=== PATIENT | male | born 1990 | race African-American/Black ===

== ENCOUNTER 2024-02-27 17:19 | Inpatient (IN) | payer OTHER ==
[2024-02-27 19:48] VITALS: BMI 20.9
[2024-02-27] MEDS ORDERED: POLYETHYLENE GLYCOL (HEALTHYLAX) 3350 17 GM PACKET PO PRN (20:31)
[2024-02-27] MEDS ORDERED: NALOXONE (NARCAN) HCL 4 MG/0.1 ML SPRAY NS PRN (20:31)
[2024-02-27] MEDS ORDERED: BENZOCAINE/MENTHOL (CHLORASEPTIC ) LOZENGE MM PRN (20:31)
[2024-02-27] MEDS ORDERED: IBUPROFEN 400 MG TABLET (FP) PO PRN (20:31)
[2024-02-27] MEDS ORDERED: IBUPROFEN 600 MG TABLET (FP) PO PRN (20:31)
[2024-02-27] MEDS ORDERED: DICYCLOMINE HCL 10 MG CAPSULE PO PRN (20:31)
[2024-02-27] MEDS ORDERED: LOPERAMIDE HCL 2 MG CAPSULE PO PRN (20:31)
[2024-02-27] MEDS ORDERED: ONDANSETRON *ODT* 4 MG TABLET SL PRN (20:31)
[2024-02-27] MEDS ORDERED: ACETAMINOPHEN 325 MG TABLET (FP) PO PRN (20:31)
[2024-02-27] MEDS ORDERED: NALOXONE HCL 0.4 MG/ML VIAL IM PRN (20:31)
[2024-02-27] MEDS ORDERED: guaiFENesin 600 MG TABLET.ER (FP) PO PRN (20:31)
[2024-02-27] MEDS ORDERED: MAGNESIUM HYDROX 2400MG/30ML ORAL SUSPENSION 30 ML CUP PO PRN (20:31)
[2024-02-27] MEDS ORDERED: BENZONATATE 200 MG CAPSULE PO PRN (20:31)
[2024-02-27] MEDS ORDERED: BISMUTH SUBSALICYLATE 524 MG/30 ML PO PRN (20:31)
[2024-02-27] MEDS ORDERED: MAG HYDROX/AL HYDROX/SIMETH 30 ML UNIT-DOSE CUP PO PRN (20:31)
[2024-02-27] MEDS: MELATONIN 5 MG TABLETS PO SCH (22:03)
[2024-02-27] MEDS: THIAMINE 100 MG TABLET PO SCH (22:03)
[2024-02-27] MEDS: METHOCARBAMOL 500 MG TABLET PO PRN (23:04)
[2024-02-28] MEDS ORDERED: LORazepam 1 MG TABLET PO PRN (08:45)
[2024-02-28] MEDS: NALTREXONE MICROSPHERES (VIVITROL) 380 MG DISP.SYRIN IM ONE (09:45)
[2024-02-28] MEDS: NALTREXONE HCL 50 MG TABLET PO SCH (10:09)
[2024-02-28] MEDS: HYDROCHLOROTHIAZIDE 25 MG TABLET (FP) PO SCH (10:09)
[2024-02-28] MEDS: METOPROLOL TARTRATE 50 MG TABLET (FP) PO SCH (10:09)
[2024-02-28] MEDS: LORazepam 2 MG TABLET PO ONE (10:10)
[2024-02-28] MEDS: PRENATAL VITAMINS W/ FOLIC ACID TABLET (FP) PO SCH (10:13)
[2024-02-28] MEDS: LORazepam 2 MG TABLET PO SCH (10:40)
[2024-02-28] MEDS: SACUBITRIL/VALSARTAN 24 MG-26 MG TABLET PO SCH (11:24)
[2024-02-28] MEDS: SPIRONOLACTONE 25 MG TABLET PO SCH (11:26)
[2024-02-28 12:15] LABS: HEMATOCRIT 42.7 % (35.4-49); HEMOGLOBIN 14.7 GM/dL (11.7-16.9); MCH 33.9 pg (25.7-33.7); MCHC 34.4 g/dl (32.0-35.9); MEAN CELL VOLUME 98.6 fl (80-96); MEAN PLT VOLUME 8.4 fl (7.5-11.1); PLATELET COUNT 143 10^3/uL (134-434); RBC 4.33 M/mm3 (4.00-5.60); RDW 13.1 % (11.9-15.9)
[2024-02-28 12:26] LABS: WHITE BLOOD COUNT 1.7 K/mm3 (4.0-10.0)
[2024-02-28 13:18] LABS: CHLORIDE 97 mmol/L (98-107); POTASSIUM 3.4 mmol/L (3.5-5.1); SODIUM 135 mmol/L (136-145)
[2024-02-28 13:34] LABS: ANION GAP 10 mmol/L (4-13); BLOOD UREA NITROGEN 11.1 mg/dL (7-18); CALCIUM 9.3 mg/dL (8.5-10.1); CO2 28 mmol/L (21-32); GLUCOSE,RANDOM 77 mg/dL (74-106)
[2024-02-28 13:38] LABS: BILIRUBIN,TOTAL 0.8 mg/dL (0.2-1); CREATININE 0.9 mg/dL (0.55-1.3); SGOT/AST 112 U/L (15-37); SGPT/ALT 88 U/L (13-61); TOT PROT 7.8 g/dl (6.4-8.2)
[2024-02-28 13:40] LABS: ALK PHOS 83 U/L (45-117)
[2024-02-29 12:30] LABS: HEMATOCRIT 45.4 % (35.4-49); HEMOGLOBIN 15.3 GM/dL (11.7-16.9); MCH 33.5 pg (25.7-33.7); MCHC 33.7 g/dl (32.0-35.9); MEAN CELL VOLUME 99.2 fl (80-96); MEAN PLT VOLUME 8.5 fl (7.5-11.1); PLATELET COUNT 140 10^3/uL (134-434); RBC 4.57 M/mm3 (4.00-5.60); RDW 12.9 % (11.9-15.9); WHITE BLOOD COUNT 2.7 K/mm3 (4.0-10.0)
[2024-02-29 13:21] LABS: HIV INTERPRETATION NEGATIVE (NEGATIVE)
[2024-03-01] MEDS: LORazepam 1 MG TABLET PO SCH (05:17)
[2024-03-01] MEDS: NALTREXONE MICROSPHERES (VIVITROL) 380 MG DISP.SYRIN IM ONE (10:12)
[2024-03-01] MEDS: SACUBITRIL/VALSARTAN 24 MG-26 MG TABLET PO SCH (10:32)
[2024-03-02] MEDS ORDERED: LORazepam 0.5 MG TABLET PO PRN
[2024-03-02] MEDS: LORazepam 0.5 MG TABLET PO SCH (05:32)
[2024-03-02 06:03] VITALS: RESP 16
[2024-03-02 08:47] VITALS: BP 103/72; PULSE 85; TEMP 97.8
[2024-03-03] MEDS ORDERED: LORazepam 0.5 MG TABLET PO ONE (05:00)
== END 2024-03-02 10:22 | disposition home or self-care (01) | DRG 897 ==
LOC: YASAS 17:19 → Y6N 22:22
PROVIDERS: ADMIT Allergy & Immunology; ATTEND Surgery
PROC: HZ2ZZZZ Detoxification Services for Substance Abuse Treatment (ICD-10-PCS; principal; 2024-02-27)
DX: F10.230 Alcohol dependence with withdrawal, uncomplicated (principal); I42.6 Alcoholic cardiomyopathy; F19.24 Other psychoactive substance dependence with psychoactive substance-induced mood disorder; I50.9 Heart failure, unspecified; Z91.148 Patient's other noncompliance with medication regimen for other reason
CPT/HCPCS: 36415; 80053; 80305; 80307; 85025; 85027; 86780; 87389; 93005; 93010